=== PATIENT | female | born 1965 | race Caucasian/White ===

== ENCOUNTER 2016-10-25 08:20 | Inpatient (IN) | payer OTHER ==
[~2016-10-25] VITALS: Ht 147.3 cm; Wt 74.0 kg
[2016-10-25] VITALS (8 sets, daily range): BP systolic 132–137; BP diastolic 68–83; PULSE 57–77; RESP 16–76; Ht 147.3 cm; Wt 74.0 kg
[2016-10-25] MEDS ORDERED: BISACODYL (EC) 5 MG TAB PO PRN (11:30)
[2016-10-25] MEDS ORDERED: NACL 0.9% 3 ML SYG IV SCH (11:30)
[2016-10-25] MEDS ORDERED: MAGNESIUM HYDROXIDE 30ML CUP PO PRN (11:30)
[2016-10-25] MEDS ORDERED: LORAZEPAM 2 MG INJ IV PRN (11:30)
[2016-10-25] MEDS ORDERED: hydrALAzine 20 MG INJ IV PRN (11:30)
[2016-10-25] MEDS ORDERED: HYDROCODONE/APAP (5/325) TAB PO PRN (11:30)
[2016-10-25] MEDS ORDERED: morphine 2 MG INJ IV PRN (11:30)
[2016-10-25] MEDS ORDERED: ONDANSETRON 4 MG INJ IV PRN (11:30)
[2016-10-25] MEDS: ACETAMINOPHEN 325 MG TAB PO PRN ×2 (11:32→17:10)
[2016-10-25 13:35] LABS: ADD SCAN DIFF NO; HAAIG REFLEX REFLEX FILED
[2016-10-25 13:45] LABS: BASOPHIL # 0.1 10^3/ul (0.0-0.1); BASOPHILS % 0.7 % (0.0-2.0); EOSINOPHILS # 0.1 10^3/ul (0.0-0.5); EOSINOPHILS % 2.1 % (0.0-7.0); HEMOGLOBIN 13.8 g/dl (12.0-16.0); LYMPHOCYTES # 2.3 10^3/ul (0.8-2.9); LYMPHOCYTES % 33.3 % (15.0-51.0); MEAN CORPUSCULAR HEMOGLOBIN 29.9 pg (29.0-33.0); MEAN CORPUSCULAR HGB CONC 34.5 g/dl (32.0-37.0); MEAN CORPUSCULAR VOLUME 86.6 fl (82.0-101.0); MEAN PLATELET VOLUME 9.9 fl (7.4-10.4); MONOCYTE # 0.5 10^3/ul (0.3-0.9); MONOCYTES % 6.6 % (0.0-11.0); NEUTROPHIL # 3.9 10^3/ul (1.6-7.5); PLATELET COUNT 269 10^3/UL (140-415); RED BLOOD COUNT 4.62 10^6/ul (4.20-5.40); RED CELL DISTRIBUTION WIDTH 12.3 % (11.5-14.5); WHITE BLOOD COUNT 6.8 10^3/ul (4.8-10.8)
[2016-10-25 14:53] LABS: ALBUMIN/GLOBULIN RATIO 1.11; BILIRUBIN,INDIRECT 0.2 mg/dl (0-1.1); BILIRUBIN,TOTAL 0.2 mg/dl (0.2-1.3); CREATININE 0.59 mg/dl (0.44-1.00); MAGNESIUM 1.7 mg/dl (1.7-2.5); PHOSPHORUS 3.4 mg/dl (2.5-4.9); TOTAL PROTEIN 7.6 g/dl (6.1-8.1)
[2016-10-25 15:00] LABS: HEPATITIS B CORE ANTIBODY NEGATIVE (NEGATIVE)
--- NOTE | 2016-10-25 15:16 | HP ---
DATE OF ADMISSION: 10/25/2016 TIME OF EVALUATION: 11:00 am REASON FOR ADMISSION: Chest pain. CONSULTANTS: Dr. Epifanio Briggs. Cardiology. HISTORY OF PRESENT ILLNESS: This is a 50-year-old female patient who was transferred from [facility] because of insurance reasons to [facility]. The patient went to the hospital at [facility] because of chest pain that started since 10:00 p.m. on 10/24/2016. The patient verbalized the chest pain as a burning sensation that was substernal with radiation of directly behind the back. The patient also reported associated dyspnea and dizziness. The patient denied any nausea. She denied any vomiting or diaphoresis. The patient verbalized that she had a similar episode approximately 2 months ago. The patient has no known medical history and does not take any medications at home. The patient has a sister who had a heart attack around 50 years of age. The patient went to [facility] because that was close to her home. At [facility], the patient was noticed to have elevated D-dimer. The patient consequently underwent a CT angiogram of the chest that was negative for any pulmonary embolism, aortic aneurysm or dissection. The patient was also noted to have elevated random blood glucose of 275. The patient also had minimal transaminitis without any hyperbilirubinemia. The patient was transferred to [facility] for insurance reasons. PAST MEDICAL HISTORY: Denies. PAST SURGICAL HISTORY: . HOME MEDICATIONS: None. ALLERGIES: NO KNOWN DRUG ALLERGIES. SOCIAL HISTORY: The patient lives at home with her family. Denies any use of tobacco, alcohol or illicit drugs. REVIEW OF SYSTEMS: A 12-point review of systems were made and the review of systems were negative other than what is mentioned in the history of present illness. PHYSICAL EXAMINATION: VITAL SIGNS: Temperature 98.3, pulse rate 71, respiratory rate 16, blood pressure 132/83, oxygen saturation 97% on room air. GENERAL: This is a slightly overweight female lying in bed in no apparent distress. HEENT: Head normocephalic and atraumatic. Eyes: Anicteric sclerae. Conjunctivae clear. ENT: Nasal septum is midline. Oral mucosa is moist. NECK: Supple. No JVD noticed. RESPIRATORY: Bilaterally clear to auscultation. No adventitious breath sounds heard. No use of accessory muscles of respiration. CARDIAC: Regular rate and rhythm. S1, S2 heard. Chest pain reproducible upon palpation. ABDOMEN: Soft, nontender and nondistended. Bowel sounds positive in all 4 quadrants. GENITOURINARY: Deferred. EXTREMITIES: No cyanosis, no clubbing, no edema. Peripheral pulses are palpable. NEUROLOGIC: The patient is awake, alert and oriented. Cranial nerves are grossly intact. LABORATORY AND DIAGNOSTIC DATA: from [facility]: WBC 7.8, hemoglobin 14.6, hematocrit 42.2, platelet count 229. Sodium 137, potassium 3.7, chloride 98, carbon dioxide 22, creatinine 0.95, glucose 275, BUN 11, total protein 8.1, albumin 4.3, AST 54, ALT 90, alkaline phosphatase 160, GFR greater than 60. D- dimer 0.76. Troponin I is less than 0.01. CT angiogram of the chest: There is no CT evidence for pulmonary embolism. There is no CT evidence for aortic aneurysm or dissection. Shallow inspiration , elevation of the right hemidiaphragm. 12-lead EKG: Normal sinus rhythm. IMPRESSION: This is a 50-year-old female who went to the emergency room at [facility] because of chest pain and was transferred to [facility] because of insurance reasons for further evaluation. ASSESSMENT AND PLAN: 1. Chest pain. To rule out acute coronary syndrome. Serial troponins will be obtained. A 2D echocardiogram will be obtained. Cardiology consult will be obtained. The patient will be started on low dose aspirin. 2. Hyperglycemia. Etiology unclear. The patient denied any history of diabetes in her family or herself. A hemoglobin A1c will be ordered to evaluate the blood glucose control over the past few weeks. 3. Transaminitis without hyperbilirubinemia. Will monitor. Will avoid any hepatotoxic medications. We will trend LFTs. Will order a hepatitis panel on this patient. Plan. The patient will be admitted to inpatient telemetry floor. The patient will be started on a low cholesterol diet. The patient will be started on DVT prophylaxis and gastrointestinal prophylaxis. The patient remain a FULL CODE. Activities will be as tolerated. The rest of the patient's management will be based on the clinical course, the results of the diagnostic studies and inputs from consultants. Based on the patient's clinical presentation, she most probably requires at least 1 midnight's stay for further management and evaluation of her clinical presentation. The case and management of this patient was fully discussed with Dr. Pinon. MARCELINO PINON MD, AM/OMEGA Conf#: [id number] DID#: [id number] MTDD
[2016-10-25 15:23] LABS: THYROID STIMULATING HORMONE 1.62 MIU/L (0.465-4.680)
[2016-10-25] MEDS ORDERED: HYPOGLYCEMIA PROTOCOL when Glucose is <70 mg/dL or symptomatic <90 mg/dL. XX ONE (15:30)
[2016-10-25] MEDS ORDERED: Discontinue Glyburide, Glipizide, and/or Glimepiride prior to starting Insulin XX ONE (15:30)
[2016-10-25] MEDS ORDERED: GLUCOSE GEL 15 GRAM TUBE PO PRN ×2 (16:00)
[2016-10-25] MEDS ORDERED: GLUCAGON 1 MG INJ IM PRN (16:00)
[2016-10-25] MEDS ORDERED: DEXTROSE 50% 50 ML SYRINGE IV PRN ×2 (16:00)
[2016-10-25] MEDS ORDERED: GLUCOSE GEL 15 GRAM TUBE BUCCAL PRN (16:00)
[2016-10-25] MEDS: CHOLECALCIFEROL 1,000 UNIT TAB PO SCH (17:10)
[2016-10-25] MEDS: PANTOPRAZOLE (EC) 40 MG TAB PO SCH (17:10)
[2016-10-25] MEDS: INSULIN ASPART [NOVOLOG] 3 ML PEN SC SCH ×3 (17:16→20:42)
[2016-10-25] MEDS ORDERED: INSULIN DETEMIR [LEVEMIR] 3ML CART SC SCH (20:00)
[2016-10-25] MEDS ORDERED: FAMOTIDINE 20 MG INJ IV SCH (21:00)
[2016-10-26] VITALS (10 sets, daily range): BP systolic 115–143; BP diastolic 60–80; PULSE 74–92; RESP 18
[2016-10-26] MEDS ORDERED: ACCU-CHEK XX SCH (02:00)
[2016-10-26 03:21] LABS: ADD UMIC YES; URINE BILIRUBIN (Dip) NEGATIVE (NEGATIVE); URINE BLOOD (Dip) TRACE (NEGATIVE); URINE COLOR LT. YELLOW (YELLOW); URINE KETONES (Dip) NEGATIVE (NEGATIVE); URINE LEUKOCYTE ESTERASE (Dip) NEGATIVE (NEGATIVE); URINE NITRITE (Dip) POSITIVE (NEGATIVE); URINE TOTAL PROTEIN (Dip) NEGATIVE (NEGATIVE); URINE UROBILINOGEN (Dip) 0.2 E.U./dL (0.1-1.0)
[2016-10-26 03:30] LABS: BACTERIA,URINE MANY; SQUAMOUS EPITHELIAL CELL,UR MANY
[2016-10-26 04:25] LABS: BARBITURATES NEGATIVE (NEGATIVE); BENZODIAZEPINES NEGATIVE (NEGATIVE); CANNABINOIDS NEGATIVE (NEGATIVE); COCAINE NEGATIVE (NEGATIVE); OPIATES NEGATIVE (NEGATIVE)
[2016-10-26] MEDS: PANTOPRAZOLE (EC) 40 MG TAB PO SCH (05:46)
--- NOTE | 2016-10-26 06:54 | CONS ---
DATE OF ADMISSION: 10/25/2016 DATE OF CONSULTATION: 10/25/2016 REASON FOR CONSULTATION: Chest pain. HISTORY OF PRESENT ILLNESS: The patient is a 50-year-old female who comes in with chest pain since 10 p.m. last night, associated with shortness of breath and dizziness. Denies any syncope or palpit ation. Denies nausea, vomiting. Denies abdominal pain. Denies fever, chills or rigors. She has n o cardiac risk factors. PAST MEDICAL HISTORY: 1. Obesity. 2. No prior history of coronary artery disease or myocardial infarction or diabetes, dyslipidemia o r hypertension. SOCIAL HISTORY: No smoking, alcohol, or recreational drugs. ALLERGIES: NONE. CURRENT MEDICATIONS: None. REVIEW OF SYSTEMS: Unremarkable except that mentioned in the HPI. PHYSICAL EXAMINATION: VITAL SIGNS: Temperature 98.3, heart rate of 71, blood pressure 132/83 mmHg, breathing at 16 and sa turating 97%. GENERAL: Patient awake, alert, oriented, no apparent distress. NECK: No JVD or carotid bruit. CARDIOVASCULAR: Regular rate and rhythm, no murmur, rub or gallop. LUNGS: Clear to auscultation. ABDOMEN: Soft. Bowel sounds are present. There is no organomegaly. EXTREMITIES: No pedal edema. Pedal pulses felt bilaterally. DIAGNOSTIC DATA: EKG not done. LABORATORY DATA: Pending. IMAGING: Chest x-ray pending. ASSESSMENT AND PLAN: A 50-year-old female with atypical chest pain, unlikely myocardial in nature, most likely gastritis/GERD. Hemodynamically stable. RECOMMENDATIONS: 1. Trend troponins, BNP. 2. Started on Protonix 40 mg daily. 3. Echocardiogram to assess for systolic function and to rule out for segmental wall motion abnorma lity. 4. EKG stat. 5. Further recommendation after review of the echocardiogram. Dictated By: RACHELLE MÁRQUEZ MD SR/NTS Conf#: [id number] DID#: [id number]
[2016-10-26 08:05] LABS: ADD SCAN DIFF NO
[2016-10-26] MEDS: INSULIN ASPART [NOVOLOG] 3 ML PEN SC SCH ×4 (08:10→13:00)
[2016-10-26 08:16] LABS: BASOPHIL # 0.1 10^3/ul (0.0-0.1); BASOPHILS % 0.9 % (0.0-2.0); EOSINOPHILS # 0.2 10^3/ul (0.0-0.5); EOSINOPHILS % 2.7 % (0.0-7.0); HEMOGLOBIN 14.4 g/dl (12.0-16.0); LYMPHOCYTES # 2.3 10^3/ul (0.8-2.9); LYMPHOCYTES % 29.4 % (15.0-51.0); MEAN CORPUSCULAR HEMOGLOBIN 29.3 pg (29.0-33.0); MEAN CORPUSCULAR HGB CONC 33.5 g/dl (32.0-37.0); MEAN CORPUSCULAR VOLUME 87.6 fl (82.0-101.0); MEAN PLATELET VOLUME 10.2 fl (7.4-10.4); MONOCYTE # 0.6 10^3/ul (0.3-0.9); MONOCYTES % 8.3 % (0.0-11.0); NEUTROPHIL # 4.5 10^3/ul (1.6-7.5); NEUTROPHILS % 58.4 % (39.0-77.0); PLATELET COUNT 259 10^3/UL (140-415); RED BLOOD COUNT 4.91 10^6/ul (4.20-5.40); RED CELL DISTRIBUTION WIDTH 12.5 % (11.5-14.5); WHITE BLOOD COUNT 7.8 10^3/ul (4.8-10.8)
[2016-10-26] MEDS: CHOLECALCIFEROL 1,000 UNIT TAB PO SCH (08:19)
[2016-10-26 08:37] LABS: ALBUMIN 4.2 g/dl (3.3-4.9); POTASSIUM 3.9 mmol/L (3.5-5.1)
[2016-10-26 08:39] LABS: CREATININE 0.64 mg/dl (0.44-1.00)
[2016-10-26 08:40] LABS: ALBUMIN/GLOBULIN RATIO 1.02; BILIRUBIN,INDIRECT 0.8 mg/dl (0-1.1); BILIRUBIN,TOTAL 0.8 mg/dl (0.2-1.3); CALCIUM 9.3 mg/dl (8.4-10.2); TOTAL PROTEIN 8.3 g/dl (6.1-8.1)
[2016-10-26 08:50] LABS: MAGNESIUM 1.7 mg/dl (1.7-2.5); PHOSPHORUS 3.7 mg/dl (2.5-4.9)
[2016-10-26 08:52] LABS: INR 1.01; PROTIME 13.3 Sec (12.2-14.2)
[2016-10-26 08:53] LABS: PARTIAL THROMBOPLASTIN TIME 27.4 Sec (25.0-35.0)
[2016-10-26] MEDS ORDERED: ASPIRIN 81 MG TAB PO SCH (09:00)
[2016-10-26] MEDS ORDERED: ENOXAPARIN 40 MG/0.4 ML SYG SC SCH (09:00)
[2016-10-26 10:57] LABS: CHOL/HDL RATIO 5.2 RATIO
--- NOTE | 2016-10-26 14:12 | PDOCDIS ---
Discharge Instructions DIAGNOSIS Discharge Diagnosis: Atypical chest pain. Type 2 diabetes mellitus. Newly diagnosed. CONDITION Patient Condition: Stable HOME CARE INSTRUCTIONS: Special Diet: carb controlled, low fat low chol FOLLOW UP/APPOINTMENTS Appointments Jm Washington MD Specialty: Internal Medicine Office Address: [address] [place], [place] [id number] Office OTHER ORDERS: Other Orders: 1. Take a low-cholesterol, carbohydrate controlled diet. 2. Take medications as per prescription. 3. Resume activities as tolerated. 4. Follow-up with your primary care physician 1 week. If you do not have a primary care physician, please call Dr. Jm Washington's office. MARCELINO ADHIKARI NP October 26, 2016 14:12
[2016-10-26] MEDS ORDERED: METF500T PO (14:13)
[2016-10-26] MEDS ORDERED: ATOR20TA65 PO (14:13)
[2016-10-26] MEDS ORDERED: CHOL100062 PO (14:13)
--- NOTE | 2016-10-26 15:13 | DS ---
DATE OF ADMISSION: 10/25/2016 DATE OF DISCHARGE: 10/26/2016 DIAGNOSES: 1. Atypical chest pain. Acute coronary syndrome ruled out. 2. Type 2 diabetes mellitus, newly diagnosed. 3. Dyslipidemia. 4. Transaminitis, improved. 5. Obesity. CONSULTATIONS: Dr. Epifanio Briggs, Cardiology. HOSPITAL COURSE: This is a 50-year-old female who was transferred from [facility] because of insurance reasons to [facility]. The patient went to [facility] because of chest pain that started since 10:00 p.m. on 10/24/2016. The patient verbalized the chest pain as burning sensation that was substernal with radiation directly behind to the back. The patient also reported associated dyspnea and dizziness. The patient denied any nausea, vomiting or diaphoresis. The patient underwent a CT angiogram of the chest that at [facility] that was negative for any PE or aortic aneurysm. The patient was also noticed to have elevated blood glucose at [facility]. The patient was admitted to inpatient telemetry floor. Serial troponins were ordered. A 2D echocardiogram was ordered. Cardiology consult was obtained. The patient's troponins remained negative. Cardiology evaluated the patient and Cardiology concurred that the patient's chest pain is most likely noncardiac in origin, most probably secondary to gastrointestinal versus musculoskeletal in origin. The patient's chest pain resolved over the course of her hospital stay. The patient was incidentally noted to have type 2 diabetes mellitus. The patient's hemoglobin A1c was 8.2. Consequently, the patient was started on sliding scale insulin along with basal insulin and premeal insulin. The patient was seen by certified adapted physical educator and was instructed on dietary restrictions and care of diabetes including blood sugar checks. The patient will be discharged home on metformin. The patient was also noticed to have dyslipidemia. Hence, the patient was started on a statin. Although, the patient had some transaminitis upon presentation this has improved throughout the patient's hospital course. The patient will be started on low dose statin. The patient had a stable hospital course. The patient was cleared by consultants to be discharged home. The patient denied any complaints at the time of discharge. DISCHARGE PLAN: The patient will be discharged home today with instructions to take a low-cholesterol, carbohydrate-controlled diet. The patient was instructed to take medications as per prescription which are listed below. She was instructed to resume activities as tolerated. The patient was instructed to follow up with her primary care physician in 1 week and if she does not have a primary care physician, please call the discharge clinic at Dr. Jm Washington's office. The patient verbalized understanding of her discharge instructions. CONDITION AT DISCHARGE: Stable. DISCHARGE MEDICATIONS: 1. Atorvastatin 20 mg p.o. at bedtime. 2. Vitamin D3 1000 units p.o. daily. 3. Metformin 500 mg p.o. b.i.d. with meals. PERTINENT LABORATORY AND DIAGNOSTIC DATA: 1. Latest CBC: WBC 7.8, hemoglobin 14.5, hematocrit of 43.0, platelet count of 59. 2. Latest BMP: Sodium 139, potassium 3.9, chloride 100, carbon dioxide 26, anion gap 16, BUN 7, creatinine 0.6, glucose 181. 3. Hemoglobin A1c 8.2. 4. Fasting lipid panel: Triglycerides 209, total cholesterol 219, LDL 133, HDL 42. 5. 2D echocardiogram. Normal left ventricular systolic function. Normal left ventricular cavity size. Normal left ventricular wall thickness. Ejection fraction is visually estimated at 65 %. Tissue Doppler/Mitral Doppler indices are consistent with impaired relaxation (Stage I diastolic dysfunction). At this time, I would like to thank all the consultants for seeing the patient and providing clinical recommendations. The case and management of this patient was fully discussed with Dr. Barnhart. Approximately 35 minutes was spent on coordinating the discharge on this patient. MARCELINO BARNHART MD, AM/OMEGA Conf#: [id number] DID#: [id number] ANUSHKA
--- NOTE | 2016-10-26 15:34 | RADRPT ---
Echocardiogram Report Patient Name: JERED SÁNCHEZ Gender: Female Date: 1965 Study Date: 26-Oct-2016 [employer] Repairer: Colby Win [facility] Location: [id number] Ref. Physician: EPIFANIO MÁRQUEZ Quality: Adequate Procedures: Transthoracic echocardiogram with complete 2D, M-Mode, and doppler examination. Indications: Chest Pain. 2D/M Mode Doppler Measurement Value Normal Ranges Measurement Value Normal Ranges LVIDd 2D 4.0 3.5 - 5.6 cm AV Peak Reed 1.4 m/sec LVIDs 2D 2.1 2.1 - 4.1 cm AV Peak PG 7.0 mmHg FS 2D 46.8 % LVOT Peak Reed 1.1 m/sec LVPWd 2D 0.9 0.6 - 1.1 cm LVOT Peak PG 4.0 mmHg IVSd 2D 0.9 0.6 - 1.1 cm MV E Peak Reed 0.6 m/sec IVS/LVPW 2D 1.0 MV A Peak Reed 0.7 m/sec AoR Diam 2D 2.5 2.0 - 3.7 cm MV E/A 0.8 LA/Ao 2D 1 0 - 1 MV Decel Time 204 msec EDV 2D 65.0 cm3 MV E/A 0.8 ESV 2D 9.8 cm3 LA Dimen 2D 2.6 2.3 - 4.0 cm Findings Left Ventricle: Normal left ventricular systolic function. Normal left ventricular cavity size. Normal left ventricular wall thickness. Ejection fraction is visually estimated at 65 %. Tissue Doppler/Mitral Doppler indices are consistent with impaired relaxation (Stage I diastolic dysfunction). Right Ventricle: Normal right ventricular size. Normal right ventricular systolic function. Left Atrium: The left atrium is normal in size. Right Atrium: The right atrium is normal in size. Mitral Valve: Normal appearance and function of the mitral valve with trace physiologic regurgitation. Aortic Valve: Normal appearance of the aortic valve. No significant aortic stenosis or insufficiency. Tricuspid Valve: Normal appearance of the tricuspid valve. Unable to obtain RVSP due to minimal presence of tricuspid regurgitation. Pulmonic Valve: Pulmonic valve not well visualized. Pericardium: Normal pericardium with no significant pericardial effusion. Aorta: Normal aortic root. IVC: Normal size and normal respiratory collapse consistent with normal right atrial pressure. Conclusions Normal left ventricular systolic function. Normal left ventricular cavity size. Normal left ventricular wall thickness. Ejection fraction is visually estimated at 65 %. Tissue Doppler/Mitral Doppler indices are consistent with impaired relaxation (Stage I diastolic dysfunction). Normal right ventricular size. Normal right ventricular systolic function. Normal appearance and function of the mitral valve with trace physiologic regurgitation. Normal appearance of the aortic valve. No significant aortic stenosis or insufficiency. Normal appearance of the tricuspid valve. Unable to obtain RVSP due to minimal presence of tricuspid regurgitation. Normal pericardium with no significant pericardial effusion. Electronically Signed By: Epifanio Márquez 26-Oct-2016 15:34:09 -0700 Patient Name: JERED SÁNCHEZ Study Date: 26-Oct-2016 [id number]
[2016-10-26] MEDS ORDERED: metFORMIN 500 MG TAB PO SCH (18:05)
[2016-10-26] MEDS ORDERED: ATORVASTATIN 20 MG TAB PO SCH (21:00)
== END 2016-10-26 17:12 | disposition home or self-care (01) | DRG 313 ==
LOC: MS4 08:20
PROVIDERS: ADMIT Family Medicine; ATTEND Family Medicine
DX: R07.89 Other chest pain (principal); E11.8 Type 2 diabetes mellitus with unspecified complications; E78.5 Hyperlipidemia, unspecified; R74.0 Nonspecific elevation of levels of transaminase and lactic acid dehydrogenase [LDH]; E66.9 Obesity, unspecified; Z68.34 Body mass index [BMI] 34.0-34.9, adult
CPT/HCPCS: 80053; 80061; 80307; 81001; 81003; 82652; 82962; 83036; 83735; 83880; 84100; 84439; 84443; 84484; 84703; 85025; 85610; 85730; 86704; 86709; 86803; 87340; 93306; J1650; J1815

== ENCOUNTER → 2016-11-04 | Outpatient (CLI) | payer OTHER ==
[~2016-11-04] MED LIST: ATOR20TA65 PO; CHOL100062 PO; METF500T PO
== END | disposition home or self-care (01) ==
LOC: DIB 11:08
PROVIDERS: ATTEND Family Medicine
DX: Z02.9 Encounter for administrative examinations, unspecified (principal)